=== PATIENT | female | born 1955 | race Caucasian/White ===

== ENCOUNTER → 2025-07-27 | Outpatient (CLI) | payer MEDICARE, BC, SELFPAY ==
[2025-07-27 15:14] LABS: Basophils # (Auto) 0.1 Thou/mm3 (0.0-0.2); Basophils % (Auto) 1 % (0-2.5); Eosinophils # (Auto) 0.7 Thou/mm3 (0.0-0.5); Eosinophils % (Auto) 10 % (0-10); Hematocrit 38.6 % (36.0-46.0); Hemoglobin 13.5 g/dL (12.0-16.0); Immature Granulocytes Auto 0.03 Thou/mm3 (0.00-0.00); Lymphocytes # (Auto) 2.5 Thou/mm3 (1.0-4.8); Lymphocytes % (Auto) 34 % (10-50); Mean Corpuscular HGB Conc 35.0 g/dl (31.0-37.0); Mean Corpuscular Hemoglobin 34.9 pg (25.0-35.0); Mean Corpuscular Volume 100 fL (80-100); Monocytes # (Auto) 0.6 Thou/mm3 (0.0-0.8); Monocytes % (Auto) 8 % (0-12); Neutrophils # (Auto) 3.4 Thou/mm3 (1.8-7.7); Neutrophils % (Auto) 46 % (37-80); Nucleated Red Blood Cell # 0.00 Thou/mm3 (0.00-0.00); Nucleated Red Blood Cell % 0 /100 WBC (0); Platelet Count 250 Thou/mm3 (140-440); RDW Standard Deviation 46.5 fL (36.4-46.3); Red Blood Count 3.87 Miln/mm3 (4.00-5.20); White Blood Count 7.3 Thou/mm3 (3.6-11.0)
[2025-07-27 15:24] LABS: Alanine Aminotransferase 23 U/L (10-49); Albumin, Serum 4.3 gm/dL (3.4-4.8); Albumin/Globulin Ratio 1.8 (1.2-2.2); Alkaline Phosphatase 54 U/L (46-116); Anion Gap 11 (7-16); Aspartate Amino Transferase 35 U/L (0-34); BUN/Creatinine Ratio 13 Ratio (12-20); Bilirubin,Total 0.7 mg/dL (0.3-1.2); Blood Urea Nitrogen 12 mg/dL (9-23); Calcium 8.5 mg/dL (8.3-10.6); Calcium (Corrected) 8.5 mg/dL (8.5-10.1); Carbon Dioxide 26.5 mMol/L (20.0-31.0); Carcinoembryonic Antigen 1.0 ng/mL (0.0-5.0); Chloride 106 mMol/L (98-107); Creatinine (Component) 0.9 mg/dL (0.6-1.3); Globulin 2.4 gm/dL (2.3-3.5); Glucose 186 mg/dL (74-106); Osmolality,Calculated 289 (275-295); Potassium 3.8 mMol/L (3.4-5.1); Sodium 143 mMol/L (136-145); Total Protein 6.7 gm/dL (5.7-8.2); eGFR > 60 See Note
== END | disposition home or self-care (01) ==
PROVIDERS: PCP Family Medicine; Referring Provider Nurse Practitioner Family; Visit Provider Nurse Practitioner Family
DX: C20 Malignant neoplasm of rectum (principal)
CPT/HCPCS: 36415; 80053; 82378; 85025

== ENCOUNTER 2025-08-02 15:03 | Outpatient (RCR) | payer MEDICARE, BC, SELFPAY ==
--- NOTE | 2025-08-15 22:57 | CTCFLWUP_ITS ---
Patient: GHISLAINE OTTO : 1955 Page 2 of 3 FOLLOW UP NOTE DATE OF SERVICE: 08/02/2025 NAME: GHISLAINE OTTO ACCOUNT: [id number] : 1955 AGE: 70 INTERVAL HISTORY: Recently lost about a month ago. Patient had her colonoscopy and was normal. 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 1 cm non-hypermetabolic right upper lobe pulmonary nodule Ms. Otto stopped cigarette smoking 9 years ago. 08/07/2025 CT scan negative for recurrence REASON FOR TODAY?S VISIT: This is office follow-up visit. Ms. Otto is here at [facility]. She is clinically doing very well. Denies any complaints today. Denies any cough, chest pain, abdominal pain or leg cramps. Continues to work at this time. Has reasonably good energy levels and good appetite. Ambulating well without any help. She did not have any recent scans. DATE OF DIAGNOSIS: 12/09/2013 STAGE/TNM: I T2 N0 M0 TREATMENT HISTORY: Care?Plan Start?Date Cycle Day Intent HISTORY OF PRESENT ILLNESS: This 70-year-old male with a history of rectosigmoid tumor. 12/09/2013: Patient had rectosigmoid resection for screening coionoscopy diagnosed rectal adenocarcinoma. Surgical pathology specimen showed moderately differentiated adenocarcinoma measuring 3.5 cm in size without any lymphovascular or perineural invasion. 13 lymph nodes were negative for metastatic disease. For staged as a pT2, pNO disease. Her postoperative course was uneventful. No adjuvant treatment was offered. Patient has been recurrence free. OTHER MEDICAL HISTORY/CONDITIONS: FAMILY HISTORY: SOCIAL HISTORY: [employer] HISTORY: MEDICATIONS: 1. B Complex - 1 tab Every 2 Days 2. hydrochlorothiazide - 25 mg 1 tab Daily 3. loratadine - 10 mg Each Day 4. multivitamin - 1 tab Each Day 5. Prempro - 0.3-1.5 mg 1 tab Daily Medications Last Reconciled by Marilyn Ferguson MD on 08/02/2025 ALLERGIES: aspirin REVIEW OF SYSTEMS: A complete 14-point review of systems was performed and is negative except as noted in interval history. PHYSICAL EXAMINATION: VITAL SIGNS: PAIN: 0 - No pain ECOG Performance Status: 0 - Asymptomatic and fully active GENERAL APPEARANCE: Appears well, in no apparent distress, appropriately interactive. HEENT: Normocephalic, no temporal wasting, normal conjunctiva, no scleral icterus, normal hearing, lips without lesions, neck normal range of motion. CARDIOVASCULAR: Not assessed. PULMONARY: Normal respiratory effort, no respiratory distress or use of accessory muscles, speaking in full sentences, no tachypnea. EXTREMITIES: No pedal edema or cyanosis. SKIN: Normal skin appearance. NEUROLOGIC: Alert and oriented x4. PSHYCHIATRIC: Appropriate affect, mood normal, behavior normal, intact thought and speech. LABORATORY DATA: I have personally reviewed and interpreted each of the patient?s relevant lab tests, abnormal findings are below: Date 03/15/24 07/27/25 ??WHITE?BLOOD?COUNT?(Thou/mm3) 8.5 7.3 ??RED?BLOOD?COUNT?(Miln/mm3) 4.12 3.87?L ??HEMOGLOBIN?(gm/dl) 14.0 13.5 ??HEMATOCRIT?(%) 41.1 38.6 ??PLATELET?COUNT?(Thou/mm3) 261 250 ??NEUTROPHILS?%,?AUTO?(%) 58 46 ??LYMPH?%,?AUTO?(%) 34 34 ??NEUTROPHILS,?AUTO?(Thou/mm3) 4.9 3.4 ??GLUCOSE,RANDOM?(mg/dL) ? 186?H ??BLOOD?UREA?NITROGEN?(mg/dL) ? 12 ??CREATININE?(mg/dL) ? 0.90 ??SODIUM?(mmol/L) ? 143 ??POTASSIUM?(mmol/L) ? 3.8 ??CHLORIDE?(mmol/L) ? 106 ??CrCl?(CandG)?(ml/min) ? 52.81 ??AST/SGOT?(Unit/L) ? 35?H ??ALT/SGPT?(Unit/L) ? 23 ??ALKALINE?PHOSPHATASE?(Unit/L) ? 54 ??BILIRUBIN,?TOTAL?(mg/dL) ? 0.7 ??PROTEIN?TOTAL?(gm/dl) ? 6.7 ??ALBUMIN,?SERUM?(gm/dl) ? 4.3 ??GLOBULIN?(gm/dl) ? 2.4 ??ALBUMIN/GLOBULIN?RATIO ? 1.8 ??CALCIUM,?SERUM?(mg/dL) ? 8.5 ??CALCIUM?SERUM?(CORRECTED)?(mg/dL) ? 8.5 ??CEA?(O*)?(ng/ml) ? 1.0 ASSESSMENT/PLAN: 1. History of stage I rectosigmoid adenocarcinoma status post surgery in 2013 without any clinical evidence of recurrence at this time. 2. Hypertension 3. Bilateral hip replacement about 8 years ago. Plan is to continue monitoring with blood work and GI follow-up for colonoscopies. Patient is now more than 10 years since stage I colon cancer and CT scan reviewed with them and is negative. RTC in 1 year RETURN TO CLINIC: I reviewed the diagnosis, prognosis, and recommended treatment/procedure options with the patient (and/or their legal floor representative), including the potential benefits, risks, side effects and alternative therapies. We also discussed the option of no treatment and the possibility of clinical trial participation, if applicable. All questions were addressed, and they demonstrated understanding. They provided informed consent to proceed with the proposed plan of care. BILLING AND COMPLIANCE: I reviewed external records from providers outside my specialty as summarized above. I spent a total of 50 minutes on this patient?s care on the day of their visit excluding time spent related to any billed procedures. This time includes time spent with the patient as well as time spent documenting in the medical record, reviewing patients records and tests, obtaining history, placing orders, communicating with other healthcare professionals, counseling the patient, family or caregiver, and/or care coordination for the diagnoses above. Electronically Signed by: Nicolas Martinez MD T: 10:54 PM CC: Oliver?Mo?Cooper AGUILAR?Krissy? PCP: No Primary/family, Physician Referring: Nicolas Martinez This document was completed utilizing speech recognition software. Grammatical errors, random word insertions, pronoun errors, and incomplete sentences are an occasional consequence of this system due to software limitations, ambient noise, and hardware issues. Any formal questions or concerns about the content, text or information contained within the body of this dictation should be directly addressed to the provider for clarification.
== END 2025-08-04 23:59 | disposition home or self-care (01) ==
LOC: SCTC 15:03
PROVIDERS: Referring Provider Internal Medicine Hematology & Oncology; Visit Provider Internal Medicine Hematology & Oncology
DX: Z08 Encounter for follow-up examination after completed treatment for malignant neoplasm (principal); Z85.048 Personal history of other malignant neoplasm of rectum, rectosigmoid junction, and anus; I10 Essential (primary) hypertension
CPT/HCPCS: 99212; G0463

== ENCOUNTER → 2025-08-07 | Outpatient (CLI) | payer MEDICARE, BC, SELFPAY ==
--- NOTE | 2025-08-07 15:30 | XR_ITS ---
Examination: CT chest, without intravenous contrast. Sagittal and coronal 2-D reconstructions. Exam date and time: August 07, 2025, 14 p.m., comparison CT chest July 19, 2024, CT chest August 26, 2023, PET/CT scan April 09, 2023 INDICATIONS: Diagnosis malignant neoplasm of rectum, calcified nodule right upper lobe on CT chest July 19, 2024 and August 26, 2023, 10 mm non-hypermetabolic pulmonary nodule right upper lobe on PET/CT scan April 09, 2023 CTDI:vol (mGy) 6.45 DLP: (mGycm) 231 Technique: Multiple 3.0 mm axial sections of the chest to been obtained. Bone and lung density settings are obtained. Sagittal and coronal 2-D reconstructions have been obtained. Low dose protocols were performed. One or more of the following dose reduction techniques were used; automated exposure control, adjustment of the mA and/or KV according to patient size, use of iterative reconstruction technique. Findings: No thoracic aortic aneurysm dilatation Pulmonary artery segments are nonenlarged No paratracheal tracheobronchial or bronchopulmonary adenopathy Stable calcified granuloma right upper lobe Stable 3 mm pulmonary nodule left upper lobe No new pulmonary nodules No pneumonia or pulmonary edema No pleural disease No visualized liver or splenic lesion Contracted gallbladder No renal or ureteral calculi Moderate thoracic spondylosis IMPRESSION: No interval mediastinal lymphadenopathy Stable pulmonary nodules compared with July 19, 2024
== END | disposition home or self-care (01) ==
LOC: CCTX 15:12
PROVIDERS: PCP Family Medicine; Referring Provider Internal Medicine Hematology & Oncology; Visit Provider Internal Medicine Hematology & Oncology
DX: R91.8 Other nonspecific abnormal finding of lung field (principal); C20 Malignant neoplasm of rectum
CPT/HCPCS: 71250